=== PATIENT | female | born 2000 | race Caucasian/White ===

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

== ENCOUNTER 2018-01-25 14:34 | Emergency (ER) | payer MEDICAID ==
[2018-01-25 15:23] LABS: PLATELET COUNT 481 10^3/uL (150-400)
--- NOTE | 2018-01-25 15:29 | EDPHY ---
H & P Smoking Status: Current some day smoker Time Seen by Provider: 01/25/18 14:58 HPI/ROS: HPI Depressed. Suicidal. 17-year-old female by private vehicle. This patient has a history of anxiety, depression, cutting and suicidal attempts. This patient reports that for some time now she has been feeling depressed and the urge to cut herself as well as feeling suicidal. She tells me that she does not want to but feels an urge to kill herself. She states that she will do this by cutting her wrist. She last cut the lateral aspect of both hips about 1 month ago. Prior to this her last major cutting episode was her right lateral arm about 7 months ago. She has been admitted to [facility] in the past. ROS: Constitutional: No fever, no chills. As above. Eyes: No discharge. No changes in vision. ENT: No sore throat. No nasal congestion or rhinorrhea. Respiratory: No cough. No shortness of breath. Cardiac: No chest pain, no palpitations. Gastrointestinal: No abdominal pain, no vomiting, no diarrhea. Genitourinary: No hematuria. No dysuria or increased frequency with urination. Musculoskeletal: No back pain. No neck pain. No myalgias or arthralgias. Skin: No rashes. As above. Neurological: No headache. No focal weakness or altered sensation. Past medical history: Suicidal ideation. Former M1 hold. Former admission to [facility]. Cutter, anxiety, depression, panic attacks, asthma, insomnia , fainting spells. She currently is not on any psychiatric medications. She takes GHB at night to help her fall asleep. Social history: Nonsmoker. No alcohol. As above. Otherwise no IV drugs or street drugs. Physical Exam: General Appearance: Alert, no distress. This patient is responding to questions appropriately and in full sentences. This patient appears well- hydrated and well-nourished. Eyes: Pupils equal and round no pallor or injection. No lid edema, erythema or injection. Respiratory: There are no retractions, lungs are clear to auscultation with good air movement bilaterally. Cardiovascular: Regular rate and rhythm. No murmur. Gastrointestinal: Abdomen is soft and nontender, no masses, bowel sounds normal. No focal tenderness at McBurney's point. No Flores sign. Neurological: Motor sensory function is grossly intact. Cranial nerves are normal. Gait is normal. Skin: Warm and dry, no rashes. Old scars from prior superficial lacerations/ cutting bilateral, lateral hip areas and bilateral proximal arms. No acute lacerations. Nothing suturable. Musculoskeletal: Neck is supple and nontender. Extremities are symmetrical. All joints range without pain or impingement. Psychiatric: No agitation. No depression. Database: EKG: Imaging: Procedures: Emergency department course: Triage vital signs reviewed and are normal. The patient is afebrile. After my evaluation of this patient at 3:30 p.m. I placed her on a detainer. She is medically cleared for behavioral health evaluation from my standpoint. Behavioral Health TLC notified. 9:00 p.m., the patient has been seen and evaluated by Behavioral Health. They are looking for placement. Probably [facility]. 10:00 p.m., the patient was placed on an M1 hold by the on-call psychiatrist. 11:00 p.m., the patient is awaiting placement. Likely destination is admission to [facility]. Her remaining emergency department course under my care has been uneventful. Care was turned over to Dr. Covarrubias at this time. Differential Diagnosis: The differential diagnosis on this patient includes but is not limited to suicidal ideation, major depression, situational depression, anxiety. This represents a partial list of diagnoses considered. These considerations are based on history, physical exam, past history, reassessment and diagnostic testing. (Oswaldo Wagner) 1:36 a.m.- The patient has been accepted at [facility] by Dr. Howard. I have completed the EMTALA form. (Yari Covarrubias) Constitutional: Initial Vital Signs Temperature (C) 36.8 C 01/25/18 14:39 Heart Rate 95 01/25/18 14:39 Respiratory Rate 18 01/25/18 14:39 Blood Pressure 123/66 H 01/25/18 14:39 O2 Sat (%) 97 01/25/18 14:39 O2 Delivery Mode Room Air Allergies/Adverse Reactions: gingin Allergy (Unknown, Uncoded 01/25/18 14:42) Home Medications: Medication Instructions Recorded Albuterol Sulfate 01/25/18 - Data Points Laboratory Results: Laboratory Results 01/25/18 15:15 12/04/18 15:15 01/25/18 01/25/18 01/25/18 15:15 15:15 15:15 WBC 8.01 10^3/uL 10^3/uL (3.80-9.50) RBC 4.66 10^6/uL 10^6/uL (4.18-5.33) Hgb 14.0 g/dL g/dL (12.6-16.3) Hct 43.5 % % (38.0-47.0) MCV 93.3 fL fL (81.5-99.8) MCH 30.0 pg pg (27.9-34.1) MCHC 32.2 g/dL L g/dL (32.4-36.7) RDW 13.7 % % (11.5-15.2) Plt Count 481 10^3/uL H 10^3/uL (150-400) MPV 9.8 fL fL (8.7-11.7) Neut % (Auto) 55.6 % % (39.3-74.2) Lymph % (Auto) 29.3 % % (15.0-45.0) Maverick % (Auto) 9.7 % % (4.5-13.0) Eos % (Auto) 4.1 % % (0.6-7.6) Baso % (Auto) 1.2 % % (0.3-1.7) Nucleat RBC Rel Count 0.0 % % (0.0-0.2) Absolute Neuts (auto) 4.44 10^3/uL 10^3/uL (1.70-6.50) Absolute Lymphs (auto) 2.35 10^3/uL 10^3/uL (1.00-3.00) Absolute Monos (auto) 0.78 10^3/uL 10^3/uL (0.30-0.80) Absolute Eos (auto) 0.33 10^3/uL 10^3/uL (0.03-0.40) Absolute Basos (auto) 0.10 10^3/uL 10^3/uL (0.02-0.10) Absolute Nucleated RBC 0.00 10^3/uL 10^3/uL (0-0.01) Immature Gran % 0.1 % % (0.0-1.1) Immature Gran # 0.01 10^3/uL 10^3/uL (0.00-0.10) Sodium 139 mEq/L mEq/L (135-145) Potassium 3.9 mEq/L mEq/L (3.5-5.2) Chloride 104 mEq/L mEq/L (97-110) Carbon Dioxide 26 mEq/l mEq/l (22-31) Anion Gap 9 mEq/L mEq/L (6-14) BUN 12 mg/dL mg/dL (7-23) Creatinine 0.7 mg/dL mg/dL (0.6-1.0) Estimated GFR > 60 Glucose 78 mg/dL mg/dL (70-100) Calcium 9.7 mg/dL mg/dL (8.5-10.4) Beta HCG, Qual NEGATIVE Urine Opiates Screen Urine Barbiturates Ur Phencyclidine Scrn Ur Amphetamine Screen Ur Amphetamines Screen U Benzodiazepines Scrn Urine Cocaine Screen U Marijuana (THC) Screen Ethyl Alcohol < 10 mg/dL mg/dL (0-10) 01/25/18 01/25/18 15:00 14:45 WBC RBC Hgb Hct MCV MCH MCHC RDW Plt Count MPV Neut % (Auto) Lymph % (Auto) Maverick % (Auto) Eos % (Auto) Baso % (Auto) Nucleat RBC Rel Count Absolute Neuts (auto) Absolute Lymphs (auto) Absolute Monos (auto) Absolute Eos (auto) Absolute Basos (auto) Absolute Nucleated RBC Immature Gran % Immature Gran # Sodium Potassium Chloride Carbon Dioxide Anion Gap BUN Creatinine Estimated GFR Glucose Calcium Beta HCG, Qual Urine Opiates Screen NEGATIVE Cancelled (NEGATIVE) Urine Barbiturates NEGATIVE Cancelled (NEGATIVE) Ur Phencyclidine Scrn NEGATIVE Cancelled (NEGATIVE) Ur Amphetamine Screen NEGATIVE (NEGATIVE) Ur Amphetamines Screen Cancelled U Benzodiazepines Scrn NEGATIVE Cancelled (NEGATIVE) Urine Cocaine Screen NEGATIVE Cancelled (NEGATIVE) U Marijuana (THC) Screen NEGATIVE Cancelled (NEGATIVE) Ethyl Alcohol Medications Given: Discontinued Medications Ibuprofen (Motrin) 400 mg PO EDNOW ONE Stop: 01/25/18 17:22 Last Admin: 01/25/18 17:47 Dose: 400 mg Lorazepam (Ativan) 1 mg PO EDNOW ONE Stop: 01/26/18 01:02 Last Admin: 01/26/18 01:07 Dose: 1 mg Departure - Departure Disposition: Other Psych, Not [place] Clinical Impression: Suicidal ideation, Major depression Condition: Fair Referrals: NONE *PRIMARY CARE P,. [Primary Care Provider] - As per Instructions
[2018-01-25] MEDS ORDERED: IBUPROFEN 200 MG TAB PO ONE (17:21)
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
[2018-01-26] MEDS ORDERED: LORazepam 1 MG TAB PO ONE (01:01)
[2018-01-26 02:27] VITALS: BP 104/62
--- NOTE | 2018-01-26 05:10 | ASMTTCLDSP ---
TLC Discharge Disposition Disposition: Answers: Transfer Disposition Notes: Notes: Pt came to the ED seeking hospitalization at [facility]; she has been there twice and had positive experiences. She understands that if they are not able to accept her, she will be placed at [address] Discharge Concerns/Recommendations: Notes: In consultation with [facility] ED physician, Dr Wagner it was concurred that pt appears to meet 27-65 criteria requiring psychiatric hospitalization as pt appears to be at risk of harm to self due to a mental illness condition. Was patient given the Answers: Not applicable Inpatient Behavioral Health Prohibited Belongings List while in the ED? Type of Hold: Answers: M1/72-hour Hold Hold initiated by: Answers: ED Physician For Transfers, Accepting Vivi Arthur MD Psychiatrist: For Transfers, Reason Pt preference Patient is Being Transferred: Date Signed: 01/26/2018 05:10 AM Electronically Signed By:Kike Treadwell
== END 2018-01-26 02:26 ==
DX: R45.851 Suicidal ideations (principal); F32.9 Major depressive disorder, single episode, unspecified; F41.9 Anxiety disorder, unspecified; J45.909 Unspecified asthma, uncomplicated; G47.00 Insomnia, unspecified; F17.200 Nicotine dependence, unspecified, uncomplicated
CPT/HCPCS: 80305; G0480

== ENCOUNTER 2018-02-20 14:36 | Emergency (ER) | payer MEDICAID ==
--- NOTE | 2018-02-20 15:54 | EDPHY ---
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);wants stitches - Personal History LMP (Females 10-55): 15-21 Days Ago Current Tetanus Diphtheria and Acellular Pertussis (TDAP): Yes - Medical/Surgical History Hx Asthma: Yes Hx Chronic Respiratory Disease: No Hx Diabetes: No Hx Cardiac Disease: No Hx Renal Disease: No Hx Cirrhosis: No Hx Alcoholism: No Hx HIV/AIDS: No Hx Splenectomy or Spleen Trauma: No Other PMH: suicidal ideation w/ M1; Cutter; anxiety; depression, panic attacks; asthma; insomnia; fainting spells - Social History Smoking Status: Former smoker Time Seen by Provider: 02/20/18 15:49 Constitutional: Initial Vital Signs Temperature (C) 36.7 C 02/20/18 14:50 Heart Rate 66 02/20/18 14:50 Respiratory Rate 18 02/20/18 14:50 Blood Pressure 123/72 H 02/20/18 14:50 O2 Sat (%) 97 02/20/18 14:50 O2 Delivery Mode Room Air Allergies/Adverse Reactions: No Known Allergies Allergy (Unverified 02/20/18 14:54) Home Medications: Medication Instructions Recorded Venlafaxine Xr [Effexor Xr 75MG 75 mg PO 02/20/18 (*)] traZODone [traZODONE 50MG (*)] 02/20/18 Medical Decision Making Procedures: Procedure: Laceration repair. Verbal consent was obtained from the patient. The 3 cm, simple, linear laceration on the right forearm was anesthetized in the usual fashion. The wound was irrigated, draped and explored to its base with a gloved finger. There were no deep structures involved. No tendon injury was identified. The wound was repaired with #6, 4 0 Prolene. The procedure was performed by myself. Procedure: Laceration repair. Verbal consent was obtained from the patient. The 2.5 cm, simple, linear laceration on the right forearm was anesthetized in the usual fashion. The wound was irrigated, draped and explored to its base with a gloved finger. There were no deep structures involved. No tendon injury was identified. The wound was repaired with #5, 4-0 Prolene. The procedure was performed by myself. Procedure: Laceration repair. Verbal consent was obtained from the patient. The 4 cm, simple, linear laceration on the right forearm was anesthetized in the usual fashion. The wound was irrigated, draped and explored to its base with a gloved finger. There were no deep structures involved. No tendon injury was identified. The wound was repaired with #8, 4 0 Prolene. The procedure was performed by myself. Procedure: Laceration repair. Verbal consent was obtained from the patient. The 4 cm, simple, linear laceration on the left forearm was anesthetized in the usual fashion. The wound was irrigated, draped and explored to its base with a gloved finger. There were no deep structures involved. No tendon injury was identified. The wound was repaired with#7, 4 0 Prolene. The procedure was performed by myself. Procedure: Laceration repair. Verbal consent was obtained from the patient. The 3.5 cm, simple, linear laceration on the left forearm was anesthetized in the usual fashion. The wound was irrigated, draped and explored to its base with a gloved finger. There were no deep structures involved. No tendon injury was identified. The wound was repaired with #6, 4 0 Prolene. The procedure was performed by myself. Procedure: Laceration repair. Verbal consent was obtained from the patient. The 3.5 cm, simple, linear laceration on the left forearm was anesthetized in the usual fashion. The wound was irrigated, draped and explored to its base with a gloved finger. There were no deep structures involved. No tendon injury was identified. The wound repair was #6, 4 0 Prolene The procedure was performed by myself. (Cherie Cr) ED Course/Re-evaluation: CHIEF COMPLAINT: Forearm lacerations bilaterally HISTORY OF PRESENT ILLNESS: The patient is a 17 y/o female with a history of depression and self harm arriving for wound care of 3 forearm lacerations bilaterally. She reports that she made the cuts herself and went deeper than she intended to. She denies suicidality and reports that she made the cuts because she missed a few doses of her antidepressant and became depressed, causing her to self harm to "feel something". She reports she has spoken with her therapist today and has an appointment with her psychiatrist tomorrow. She has numerous other scars across her forearms and reports it has been 8 months since her last episode of self-harm. She denies any other associated injuries or symptoms. REVIEW OF SYSTEMS: A 10 system review of systems was performed and is negative with the exception of the elements mentioned in the history of present illness. PHYSICAL EXAM: HR, BP, O2 Sat, RR. Temp noted General Appearance: Alert, well hydrated, appropriate, and non-toxic appearing. Head: Atraumatic without scalp tenderness or obvious injury Eyes: Pupils equal, round, reactive to light and accommodation, EOMI, no trauma , no injection. Nose: Atraumatic, no rhinorrhea, clear. Neck: Supple, 2+ carotid upstroke, nontender, no lymphadenopathy. Respiratory: No retractions, no distress, no wheezes, and no accessory muscle use. Musculoskeletal: Normal active ROM of all extremities. Neurological: Alert, appropriate, and interactive. Skin: 3 evenly spaced superficial lacerations bilaterally to the upper forearm. Lacerations are through the skin but do not penetrate subcutaneously. No rashes, good turgor, no nodules on palpation. Past medical history: Depression, anxiety, self-harm Past surgical history: Denies Family history: Non-contributory Social history: Lives in [facility], Medicaid patient DIFFERENTIAL DIAGNOSIS: The differential diagnosis for this patient included self-harm relapse, depression, and anxiety. MEDICAL DECISION MAKING: The patient presents with bilateral self-made lacerations to her upper forearms. She reports a history of self-harm and has numerous scars confirming this. She reports being in contact with her therapist today and has an appointment with her psychiatrist tomorrow. She denies suicidal intentions or ideation. The lacerations are superficial through the skin but do not penetrate the subcutaneous layer. TANNER Garcia will repair the lacerations. (Jonathan Ferraro) Departure - Departure Disposition: Home, Routine, Self-Care Clinical Impression: Deliberate self-cutting Laceration of forearm Qualifiers: Encounter type: initial encounter Laterality: unspecified laterality Qualified Code(s): S51.819A - Laceration without foreign body of unspecified forearm, initial encounter Condition: Good Instructions: Laceration (ED) Additional Instructions: 1. Please meet with your psychiatrist tomorrow as planed. Keep in contact with your health care team. 2. Care for your wounds as directed. 3. Return to the emergency department for signs of infection such as streaking redness, warmth, fever, or puss. Keep the dressing dry and in place for 48 hours. After 48 hours, you may remove the dressing; wash the site daily with mild soap and water; then pat dry. Take Tylenol 650 mg every 4 hours and/or Ibuprofen 600 mg every 8 hours with food as needed for pain. Wound Care Follow-Up: Removal of sutures in [ 10 ] days. Suture removal is complimentary in uncomplicated cases. Infection or abnormal findings would require reevaluation by the MD. In that case, you may be billed. Referrals: Eze Mendiola MD [Medical Doctor] - As per Instructions Report Scribed for: Jonathan Ferraro Report Scribed by: Ruth Kc Date of Report: 02/20/18 Time of Report: 16:42
[2018-02-20 17:25] VITALS: BP 130/72
== END 2018-02-20 17:26 | disposition home or self-care (01) ==
PROC: 0HQDXZZ Repair Right Lower Arm Skin, External Approach (ICD-10-PCS; principal; 2018-02-20)
PROC: 0HQEXZZ Repair Left Lower Arm Skin, External Approach (ICD-10-PCS; principal; 2018-02-20)
DX: S51.811A Laceration without foreign body of right forearm, initial encounter (principal); S51.812A Laceration without foreign body of left forearm, initial encounter; F32.9 Major depressive disorder, single episode, unspecified; R45.851 Suicidal ideations; Y92.9 Unspecified place or not applicable; Y93.9 Activity, unspecified; Y99.9 Unspecified external cause status; Z87.891 Personal history of nicotine dependence